=== PATIENT | female | born 1955 | race Caucasian/White ===

== ENCOUNTER → 2019-08-09 12:29 | Outpatient (CLI) | payer SELFPAY ==
--- NOTE | 2019-08-09 12:40 | DI.RAD.S_ITS ---
PROCEDURE: XR FOOT RT MIN 3V INDICATIONS: R Heel Pain TECHNIQUE: 3 views of the foot were acquired. COMPARISON: None. FINDINGS: Bones: No fractures or dislocations. No suspicious bony lesions. Diffuse interphalangeal joint degeneration. Mild first MTP degenerative joint disease.. Large plantar calcaneal spur. Incidental os peroneum Soft tissues: No tibiotalar joint effusion. Achilles tendon appears normal. IMPRESSION: Scattered degenerative changes as above. Large posterior calcaneal spur. Dictated by: Mathew Zapien M.D. on 08/09/2019 at 14:35 Approved by: Mathew Zapien M.D. on 08/09/2019 at 14:37
== END ==
PROVIDERS: Referring Provider Nurse Practitioner; Visit Provider Nurse Practitioner
DX: M79.671 Pain in right foot (principal); M77.31 Calcaneal spur, right foot; M19.071 Primary osteoarthritis, right ankle and foot
CPT/HCPCS: 73630

== ENCOUNTER → 2020-10-03 12:09 | Outpatient (CLI) | payer OTHER, SELFPAY ==
--- NOTE | 2020-10-03 | DI.US.S_ITS ---
PROCEDURE: US PELVIC COMPLETE INDICATIONS: PMB TECHNIQUE: Real-time scanning was performed of the pelvic organs, with image documentation. Additional endovaginal scanning was necessary due to incomplete visualization of the adnexal and endometrial structures by transabdominal scanning. COMPARISON: None. FINDINGS: Uterus: Uterus is normal in size at 6.4 x 2.7 x 4.7 cm. The endometrium measures 2.1 mm in combined thickness. Ovaries: Normal right ovary measuring 2.2 x 0.9 x 0.8 cm. Left ovary is not visualized. No adnexal masses or free fluid. Other: No pathologic free abdominal or pelvic fluid. IMPRESSION: Normal endometrial complex measurement of 2 mm. Dictated by: Harjeet Veras [facility] Interpreted: Mario Horowitz MD on 10/03/2020 at 12:52 Transcribed by: YAMILE on 10/03/2020 at 12:53 Approved by: Bari Valle M.D. on 10/04/2020 at 13:35
== END ==
PROVIDERS: PCP Internal Medicine; Referring Provider Internal Medicine; Visit Provider Internal Medicine
DX: N95.0 Postmenopausal bleeding (principal)
CPT/HCPCS: 76830; 76856

== ENCOUNTER → 2021-01-05 10:00 | Outpatient (CLI) | payer OTHER, SELFPAY | PROVIDERS: PCP Internal Medicine; Referring Provider Internal Medicine; Visit Provider Internal Medicine | DX: Z78.0 Asymptomatic menopausal state (principal) | CPT/HCPCS: 77080 ==

== ENCOUNTER → 2021-02-12 08:58 | Outpatient (CLI) | payer OTHER, SELFPAY ==
--- NOTE | 2021-02-12 09:00 | DI.MG.S_ITS ---
BILATERAL DIGITAL SCREENING MAMMOGRAM 3D/2D WITH CAD: 02/12/2021 CLINICAL: Routine screening. Family history of breast cancer. Comparison is made to exams dated: 03/13/2018 mammogram and 04/08/2011 mammogram - out side. The tissue of both breasts is heterogeneously dense. This may lower the sensitivity of mammography. Current study was also evaluated with a Computer Aided Detection (CAD) system. There is a new fine calcification in the right breast posterior depth superior region seen on the mediolateral oblique view only. No other significant masses, calcifications, or other findings are seen in either breast. Left breast scar marker. IMPRESSION: INCOMPLETE: NEEDS ADDITIONAL IMAGING EVALUATION The new fine calcification in the right breast is indeterminate. Additional views are recommended. This exam was interpreted at Station ID: [id number]. NOTE: For mammograms, a report in lay terms will be sent to the patient. Approximately 15% of breast malignancies will not be visualized mammographically. In the management of a palpable breast mass, a negative mammogram must not discourage biopsy of a clinically suspicious lesion. Electronically Signed By: Brian Silveira M.D. [facility]/:02/13/2021 09:23:13 letter sent: Additional Imaging Needed ACR BI-RADS Category 0: Incomplete 3340F
== END ==
PROVIDERS: PCP Internal Medicine; Referring Provider Internal Medicine; Visit Provider Internal Medicine
DX: Z12.31 Encounter for screening mammogram for malignant neoplasm of breast (principal); Z80.3 Family history of malignant neoplasm of breast
CPT/HCPCS: 77063; 77067

== ENCOUNTER → 2021-02-26 13:26 | Outpatient (CLI) | payer OTHER, SELFPAY ==
--- NOTE | 2021-02-26 14:04 | DI.MG.S_ITS ---
Date: 02/26/2021 13:53 At the request of: JANNIE ANGEL Procedure: MM special view RT UNILATERAL RIGHT DIGITAL DIAGNOSTIC MAMMOGRAM 3D/2D WITH ADDITIONAL VIEWS: 02/26/2021 CLINICAL: Additional evaluation requested from prior study. Comparison is made to exams dated: 02/12/2021 [facility], 03/13/2018 mammogram, and 04/08/2011 mammogram - out side. The tissue of right breast is heterogeneously dense. This may lower the sensitivity of mammography. There are new 1 cm grouped linear fine calcifications in the right breast posterior depth superior region seen on the mediolateral oblique view only. No other significant masses or calcifications are seen in the breast. IMPRESSION: SUSPICIOUS OF MALIGNANCY Fine calcifications in the right breast are at a moderate suspicion for malignancy. A stereotactic biopsy is recommended. Exam findings were conveyed to the patient. This exam was interpreted at Station ID: [id number]. NOTE: For mammograms, a report in lay terms will be sent to the patient. Approximately 15% of breast malignancies will not be visualized mammographically. In the management of a palpable breast mass, a negative mammogram must not discourage biopsy of a clinically suspicious lesion. Electronically Signed By: Brian Silveira M.D. slc/:02/26/2021 14:17:13
== END ==
PROVIDERS: PCP Internal Medicine; Referring Provider Internal Medicine; Visit Provider Internal Medicine
DX: R92.8 Other abnormal and inconclusive findings on diagnostic imaging of breast (principal)
CPT/HCPCS: 77065; G0279

== ENCOUNTER → 2021-04-24 12:30 | Outpatient (CLI) | payer OTHER, SELFPAY ==
--- NOTE | 2021-04-24 | DI.MRI.S_ITS ---
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 PROCEDURE: MR BREAST BI WO/W CON INDICATIONS: Intraductal carcinoma in situ of right breast TECHNIQUE: The patient was placed prone in a dedicated breast imaging coil. Precontrast axial STIR and 3D FLASH without fat saturation sequences were obtained. Both before and after bolus injection of contrast, sequential 1-minute axial 3D FLASH with fat saturation sequences for 3 time points, with subtraction images and maximum intensity projections (MIP's) generated. Delayed sagittal FLASH images with fat saturation were also obtained. Computer-aided detection, including computer algorithm analysis of MRI image data for lesion detection and characterization, pharmacokinetic analysis, with further physician review for interpretation, was performed. Contrast: 20 cc ProHance IV contrast. COMPARISON: [facility], MG, MG BREAST SPECIMEN RIGHT, 03/09/2021, 13:25. [facility], , MG DIGITAL BREAST TOMOSYNTHESIS BREAST BIOPSY RIGHT, 03/09/2021, 13:10. [facility], , MM SPECIAL VIEW RT, 02/26/2021, 14:04. [facility], , MM SCREENING MAMMO BI, 02/12/2021, 9:24. [facility], , MM SPECIAL VIEW RT, 02/12/2021, 9:24. FINDINGS: Image quality: Excellent. There is minimal background parenchymal enhancement. Right breast: Retroareolar posterior depth clumped non mass enhancement measuring 1.1 x 0.8 x 0.6 cm, (32/62 and /64). Biopsy clip within this area of enhancement. Kinetic analysis demonstrates slow initial phase and persistent delayed phase enhancement. This corresponds to the biopsy-proven DCIS. This corresponds to the region of fine calcifications on mammogram. 12:00 o'clock anterior depth enhancing focus measuring 0.5 cm, (26/86 and at 32/61). Retroareolar duct which is a dilated measuring 0.4 cm and contains intrinsic T1 hyperintense signal, (/64). No enhancement. This likely represents blood products or proteinaceous debris. Left breast: No mass or suspicious enhancement. Miscellaneous: No enlarged lymph nodes. IMPRESSION: KNOWN BIOPSY PROVEN MALIGNANCY 1. Right breast: Retroareolar posterior depth clumped non mass enhancement measuring 1.1 cm corresponding to the biopsy-proven DCIS. 2. Right breast: 12:00 o'clock anterior depth enhancing focus measuring 0.5 cm. No suspicious calcifications in this region on mammogram. 3. Right breast: Retroareolar prominent duct with hemorrhagic or proteinaceous debris. This could be related to recent biopsy. -Recommend clinical correlation. If further imaging is desired, recommend targeted ultrasound. 4. Left breast: No mass or suspicious enhancement. 5. No enlarged lymph nodes. BIRADS 6. COMMENT: The imaging literature indicates that a negative contrast breast MRI examination has a high sensitivity and a moderate specificity for detecting and excluding invasive carcinomas to a detection threshold of 3-5 mm; nonetheless, appropriate clinical and mammographic follow-up are recommended. MRI is not sensitive for detecting DCIS (ductal carcinoma in situ) and may not detect large invasive neoplasms that show only minimal enhancement such as mucinous carcinoma. If there are suspicious calcifications or clinically worrisome palpable masses, then biopsy should still be considered. Invasive neoplasms can be hidden by co-existent and benign enhancement caused by mastitis, hormone therapy effects, radiation therapy, , and recent biopsy or surgery. False positive examinations can occur in a number of circumstances, including breasts that have recently been subject to invasive procedures and those that contain atypical ductal hyperplasia, hormonally stimulated glandular tissue, fat necrosis, or radial scars. Dictated by: Brian Silveira M.D. on 04/24/2021 at 14:41 This exam was interpreted at Station ID: [id number]. Electronically Signed By: Brian Silveira M.D. slc/:04/24/2021 15:17:11 ACR BI-RADS Category 6: Known biopsy proven malignancy [id number]
== END ==
PROVIDERS: PCP Internal Medicine; Referring Provider Surgery; Visit Provider Surgery
DX: D05.11 Intraductal carcinoma in situ of right breast (principal)
CPT/HCPCS: 77049

== ENCOUNTER → 2022-02-12 12:46 | Outpatient (CLI) | payer OTHER, SELFPAY ==
--- NOTE | 2022-02-12 12:48 | DI.US.S_ITS ---
PROCEDURE: US PELVIC COMPLETE INDICATIONS: Pelvic and perineal pain TECHNIQUE: Real-time scanning was performed of the pelvic organs, with image documentation. Additional endovaginal scanning was necessary due to incomplete visualization of the adnexal and endometrial structures by transabdominal scanning. COMPARISON: [facility], US, US PELVIC COMPLETE, 10/03/2020, 12:30. FINDINGS: Uterus: Uterus is anteverted and normal in size at 6.8 x 3.2 x 4.3 cm. The myometrium is homogeneous. The endometrium measures 2 mm combined thickness. Ovaries: The ovaries are not visualized. Other: No pathologic free abdominal or pelvic fluid. IMPRESSION: Unremarkable uterine ultrasound. The ovaries were not visualized. We strive to produce accurate, complete, and clear reports of imaging services. To assist us in improving patient care, this report was composed using standard report templates and voice recognition software. Therefore, it may contain abnormal punctuation, insertions and/or omissions. Occasional wrong-word or sound-alike substitutions may occur. Though we review the report and make efforts to correct it, we do recommend that the report be read carefully in proper context to recognize any text inaccuracies. Dictated by: Noa Kendrick M.D. on 02/12/2022 at 14:11 Approved by: Noa Kendrick M.D. on 02/12/2022 at 14:12
== END ==
PROVIDERS: PCP Internal Medicine; Referring Provider Internal Medicine; Visit Provider Internal Medicine
DX: R10.2 Pelvic and perineal pain (principal)
CPT/HCPCS: 76856

== ENCOUNTER → 2022-03-21 13:28 | Outpatient (CLI) | payer MEDICARE, SELFPAY ==
--- NOTE | 2022-03-21 | DI.MG.S_ITS ---
BILATERAL DIGITAL DIAGNOSTIC MAMMOGRAM 3D/2D POST LUMPECTOMY POST-RADIATION THERAPY: 03/21/2022 CLINICAL: Post right lumpectomy and radiation therapy. Comparison is made to exams dated: 06/06/2021 localization - [facility], 04/24/2021 breast MRI, 02/26/2021 mammogram, and 02/12/2021 mammogram - [facility]. Both breasts are heterogeneously dense, which may obscure small masses (category c / 51-75% glandular tissue). There are new surgical clips in the right breast in the posterior depth central to the nipple that correlate with surgical site. No significant masses, calcifications, or other findings are seen in either breast. IMPRESSION: NEGATIVE Expected right breast post operative changes. There is no mammographic evidence of malignancy. A 1 year screening mammogram is recommended. Findings and recommendations were conveyed to the patient at time of exam. This exam was interpreted at Station ID: [id number]. NOTE: For mammograms, a report in lay terms will be sent to the patient. Approximately 15% of breast malignancies will not be visualized mammographically. In the management of a palpable breast mass, a negative mammogram must not discourage biopsy of a clinically suspicious lesion. Electronically Signed By: Rose Mary scott/:03/21/2022 14:14:10 copy to: SHAR FARRIS letter sent: Normal Exam ACR BI-RADS Category 1: Negative [id number]
== END ==
PROVIDERS: PCP Internal Medicine
DX: D05.11 Intraductal carcinoma in situ of right breast (principal)
CPT/HCPCS: 77066; G0279

== ENCOUNTER → 2023-03-24 14:21 | Outpatient (CLI) | payer OTHER, SELFPAY ==
--- NOTE | 2023-03-24 14:23 | DI.MG.S_ITS ---
BILATERAL DIGITAL SCREENING MAMMOGRAM 3D/2D WITH CAD POST LUMPECTOMY: 03/24/2023 CLINICAL: Routine screening. Personal history of right breast cancer. Family history of Breast cancer. Comparison is made to exams dated: 03/21/2022 mammogram - [facility], 03/13/2018 mammogram, and 04/08/2011 mammogram - out side. Both breasts are heterogeneously dense, which may obscure small masses (category c / 51-75% glandular tissue). Current study was also evaluated with a Computer Aided Detection (CAD) system. There are surgical clips in the right breast. There is an asymmetry in the right breast posterior depth central to the nipple seen on the mediolateral oblique view only. No other significant masses, calcifications, or other findings are seen in either breast. IMPRESSION: INCOMPLETE: NEEDS ADDITIONAL IMAGING EVALUATION The asymmetry in the right breast is indeterminate. Additional views with possible ultrasound are recommended. This exam was interpreted at Station ID: [id number]. NOTE: For mammograms, a report in lay terms will be sent to the patient. Approximately 15% of breast malignancies will not be visualized mammographically. In the management of a palpable breast mass, a negative mammogram must not discourage biopsy of a clinically suspicious lesion. Electronically Signed By: Noa Kendrick M.D. lk/:03/24/2023 15:40:37 copy to: SHAR FARRIS letter sent: Additional Imaging Needed ACR BI-RADS Category 0: Incomplete 3340F
== END ==
LOC: MAMMO 14:22
PROVIDERS: PCP Internal Medicine; Referring Provider Internal Medicine; Visit Provider Internal Medicine
DX: Z12.31 Encounter for screening mammogram for malignant neoplasm of breast (principal); Z85.3 Personal history of malignant neoplasm of breast; Z80.3 Family history of malignant neoplasm of breast; R92.333 Mammographic heterogeneous density, bilateral breasts
CPT/HCPCS: 77063; 77067

== ENCOUNTER → 2023-04-16 13:16 | Outpatient (CLI) | payer OTHER, SELFPAY ==
--- NOTE | 2023-04-16 13:17 | DI.MG.S_ITS ---
UNILATERAL RIGHT DIGITAL DIAGNOSTIC MAMMOGRAM 3D/2D WITH ADDITIONAL VIEWS POST LUMPECTOMY: 04/16/2023 CLINICAL: Additional evaluation requested from prior study. Comparison is made to exams dated: 03/24/2023 mammogram, 03/21/2022 mammogram, 04/24/2021 breast MRI, and 02/26/2021 mammogram - [facility]. The right breast is heterogeneously dense, which may obscure small masses (category c / 51-75% glandular tissue). There are surgical clips in the right breast. The asymmetry in the right breast posterior depth central to the nipple seen on the mediolateral oblique view only is not seen in additional views. No other significant masses or calcifications are seen in the breast. IMPRESSION: NEGATIVE The asymmetry in the right breast seen on the screening mammogram likely respresents superimposed fibroglandular tissue and is benign. Return to annual mammogram screening schedule is recommended. This exam was interpreted at Station ID: [id number]. NOTE: For mammograms, a report in lay terms will be sent to the patient. Approximately 15% of breast malignancies will not be visualized mammographically. In the management of a palpable breast mass, a negative mammogram must not discourage biopsy of a clinically suspicious lesion. Electronically Signed By: Noa Kendrick M.D. lk/:04/18/2023 10:55:43 copy to: SHAR FARRIS letter sent: Normal Exam ACR BI-RADS Category 1: Negative [id number]
== END ==
PROVIDERS: PCP Internal Medicine; Referring Provider Registered Nurse; Visit Provider Registered Nurse
DX: R92.8 Other abnormal and inconclusive findings on diagnostic imaging of breast (principal); R92.331 Mammographic heterogeneous density, right breast
CPT/HCPCS: 77065; G0279

== ENCOUNTER → 2023-06-25 15:56 | Outpatient (CLI) | payer OTHER, SELFPAY ==
[2023-06-25 16:31] LABS: Add Manual Diff / Slide Review NO; Basophils Absolute Auto 100 /uL (0-100); Basophils Percent Auto 0.9 % (0-2); Eosinophils Absolute Auto 0 /uL (0-450); Eosinophils Percent Auto 0.8 % (2-4); Hematocrit 42.3 % (36-46); Hemoglobin 14.1 g/dL (12.0-16.0); Lymphocytes Absolute Auto 1300 /uL (1100-4500); Mean Corpuscular HGB Conc 33.3 % (30-36); Mean Corpuscular Hemoglobin 29.7 PG (26-34); Mean Corpuscular Volume 89.1 fL (80-100); Monocytes Absolute Auto 300 /uL (0-900); Monocytes Percent Auto 5.3 % (3-14); Neutrophils Absolute Auto 4400 /uL (1500-7000); Platelet Count 252 X10^3/uL (150-400); Red Blood Cell Count 4.75 X10^6/uL (4.0-5.2); Red Cell Distribution Width 13.7 % (11.6-14.8); White Blood Cell Count 6.2 X10^3/uL (4.5-11.0)
[2023-06-25 17:00] LABS: Alanine Aminotransferase 21 IU/L (<35); Albumin 4.6 g/dL (3.5-5.0); Albumin Globulin Ratio 1.5 (1.0-2.8); Alkaline Phosphatase 33 U/L (38-126); Aspartate Aminotransferase 24 IU/L (14-36); BUN Creatinine Ratio 18.9 (6-22); Bilirubin Total 0.4 mg/dL (0.2-1.3); Blood Urea Nitrogen 17 mg/dL (7-17); C-Reactive Protein Quant < 0.5 mg/dL (<1.0); Calcium 9.9 mg/dL (8.4-10.2); Carbon Dioxide 30 mmol/L (22-32); Chloride 106 mmol/L (98-107); Estimated Glomerular Filt Rate > 60 mL/min (>60); Globulin 3.1 g/dL (1.7-4.1); Glucose 106 mg/dL (80-110); HEMOLYSIS < 15 (0-50); Potassium 4.4 mmol/L (3.4-5.1); Sodium 141 mmol/L (137-145); Total Protein 7.7 g/dL (6.3-8.2)
[2023-06-25 17:01] LABS: Erythrocyte Sedimentation Rate 6 MM/HR (0-20)
== END ==
LOC: LAB 15:59
PROVIDERS: PCP Internal Medicine; Referring Provider Internal Medicine; Visit Provider Internal Medicine
DX: J32.9 Chronic sinusitis, unspecified (principal); R51.9 Headache, unspecified; G89.29 Other chronic pain
CPT/HCPCS: 36415; 80053; 85025; 85651; 86140

== ENCOUNTER → 2023-07-01 14:05 | Outpatient (CLI) | payer OTHER, SELFPAY ==
--- NOTE | 2023-07-01 | DI.CT.S_ITS ---
PROCEDURE: CT SINUS SCREEN WO CON INDICATIONS: CHRONIC SINUSITIS TECHNIQUE: Noncontrast 3.0 mm axial images acquired from the frontal sinuses to the mid-sella, with coronal and sagittal reformats. For radiation dose reduction, the following was used: automated exposure control, adjustment of mA and/or kV according to patient size. COMPARISON: [facility], CT, CT HEAD/BRAIN WO CON, 07/01/2023, 14:29. FINDINGS: Image quality: Excellent. Maxillary Sinuses: No bony remodeling or destruction. There is mild mucosal thickening within the inferior maxillary sinuses. Ethmoid Air Cells: No bony remodeling or destruction. Sinuses are clear. Sphenoid Sinuses: No bony remodeling or destruction. Sinuses are clear. Frontal Sinuses: No bony remodeling or destruction. Sinuses are clear. Ostiomeatal Complexes: The ostiomeatal complexes are patent, yet they are constitutionally narrowed, with bilateral Phani cells. Miscellaneous: Visualized intra-orbital contents are normal. No sherman bullosa or paradoxical turbinate curvature. There is mild S shaped nasal septal deviation. IMPRESSION: Mild mucosal thickening can be seen within the inferior maxillary sinuses. The ostiomeatal complexes are patent, yet they are constitutionally narrowed, with bilateral Phani cells. Dictated by: Alfredo Grace M.D. on 07/01/2023 at 16:35 Approved by: Alfredo Grace M.D. on 07/01/2023 at 16:37
--- NOTE | 2023-07-01 14:06 | DI.CT.S_ITS ---
PROCEDURE: CT HEAD/BRAIN WO CON INDICATIONS: HEADACHES / CHRONIC SINUSITIS TECHNIQUE: Noncontrast 4.5 mm thick angled axial sections acquired from the foramen magnum to the vertex, with coronal and sagittal reformats. For radiation dose reduction, the following was used: automated exposure control, adjustment of mA and/or kV according to patient size. COMPARISON: [facility], CT, CT SINUS SCREEN WO CON, 07/01/2023, 14:29. FINDINGS: Image quality: Diagnostic. CSF spaces: Basal cisterns are patent. No extra-axial fluid collections. The ventricles are symmetric in size and shape. Brain: No intracranial bleeds or masses. There is cerebral volume loss for age, with resultant ventricular and sulcal prominence. There are periventricular and deep white matter chronic small vessel ischemic changes. There is intracranial internal carotid artery atherosclerosis. Skull and face: Calvarium and visualized facial bones appear intact, without suspicious lesions. Sinuses: Visualized sinuses and mastoids are clear. IMPRESSION: No imaging explanation is found for this patient's presenting symptoms. To the limits of this noncontrast study, no findings masses or mass effect can be seen. Dictated by: Alfredo Grace M.D. on 07/01/2023 at 13:37 Approved by: Alfredo Grace M.D. on 07/01/2023 at 13:38
== END ==
LOC: CT 14:06
PROVIDERS: PCP Internal Medicine; Referring Provider Internal Medicine; Visit Provider Internal Medicine
DX: R51.9 Headache, unspecified (principal); J32.8 Other chronic sinusitis; G89.29 Other chronic pain
CPT/HCPCS: 70450; 70486

== ENCOUNTER → 2023-08-18 07:15 | Outpatient (CLI) | payer OTHER, SELFPAY ==
--- NOTE | 2023-08-18 08:15 | DI.MRI.S_ITS ---
PROCEDURE: MR HEAD/BRAIN WO/W CON INDICATIONS: Headache, unspecified TECHNIQUE: Noncontrast axial T1 spin echo, axial T2 fast spin echo, sagittal and axial FLAIR, coronal T2 fast spin echo, axial gradient echo, axial diffusion and ADC through the brain. After the administration of contrast, axial and coronal and sagittal 3D VIBE or T1 spin echo with fat saturation through the brain. COMPARISON: [facility], CT, CT HEAD/BRAIN WO CON, 07/01/2023, 14:29.Intracranial FINDINGS: Image quality: Excellent. CSF Spaces: Basal cisterns are patent. No extra-axial fluid collections. Ventricles are normal in size and shape. Brain: No midline shift. No intracranial bleeds or masses. No abnormal intracranial enhancement. The brainstem appears normal. Diffusion-weighted images demonstrate no acute infarct. No chronic ischemic insults. Normal intravascular flow voids are present. Skull and face: Calvarial marrow is normal in signal. Orbits appear normal. Sinuses: Mild diffuse paranasal sinus mucosal thickening. The mastoids appear clear. IMPRESSION: No cause for patient's symptoms is identified. No acute intracranial abnormalities. Normal appearance of the brain. Dictated by: Michael Hernandez M.D. on 08/18/2023 at 13:30 Approved by: Michael Hernandez M.D. on 08/18/2023 at 13:36
== END ==
PROVIDERS: PCP Internal Medicine; Referring Provider Internal Medicine; Visit Provider Internal Medicine
DX: R51.9 Headache, unspecified (principal); G89.29 Other chronic pain; Z85.3 Personal history of malignant neoplasm of breast
CPT/HCPCS: 70553; A9579

== ENCOUNTER → 2024-06-02 | Outpatient (CLI) | payer OTHER, SELFPAY ==
--- NOTE | 2024-06-02 15:14 | DI.MG.S_ITS ---
MM screening mammo BI: 06/02/2024. BI-RADS: 2 CLINICAL: 69-year old female for bilateral screening mammogram. No Tyrer-Cuzick risk score calculation due to the patient's personal history of breast cancer. Patient reports a history of right breast carcinoma diagnosed at age 67. Status-post left lumpectomy with radiation therapy. PRIOR EXAMS 04/16/2023, 03/24/2023, 03/21/2022, 06/07/2021, 06/06/2021, 06/04/2021, 05/25/2021, 04/24/2021, 03/09/2021, 02/26/2021, 02/12/2021. MAMMOGRAPHY TECHNIQUE: 2D and 3D (tomosynthesis) digital mammographic views obtained, with additional images as needed for full coverage. Current study was also evaluated with a Computer Aided Detection (CAD) system. DENSITY C. The breasts are heterogeneously dense, which may obscure small masses. MAMMOGRAPHY FINDINGS Right: Benign-appearing post-surgical changes noted on the right. There are no suspicious masses, calcifications, or other findings in the breast. No significant change from comparison. Left: No suspicious mass, asymmetry, microcalcification, or other abnormality seen. No significant change from comparison. IMPRESSION: Right * No evidence of malignancy with benign findings. Left * No evidence of malignancy. RECOMMENDATIONS Bilateral * Annual screening mammography. OVERALL ASSESSMENT CATEGORY BI-RADS-2: Benign. [employer] recommends annual screening mammography beginning at age 40 for women with average risk of breast cancer. ELECTRONICALLY SIGNED: Sabiha Manriquez M.D. on 06/03/2024 at 08:28:07 AM PT Interpreting Station ID: [id number]
== END ==
LOC: MAMMO 15:13
PROVIDERS: PCP Family Medicine; Referring Provider Family Medicine; Visit Provider Family Medicine
DX: Z12.31 Encounter for screening mammogram for malignant neoplasm of breast (principal); Z85.3 Personal history of malignant neoplasm of breast; R92.333 Mammographic heterogeneous density, bilateral breasts
CPT/HCPCS: 77063; 77067

== ENCOUNTER 2024-08-11 01:18 | Emergency (ER) | payer OTHER, SELFPAY ==
[2024-08-11] VITALS (10 sets, daily range): BP systolic 132–170; BP diastolic 70–90; PULSE 76–98; RESP 16; TEMP 37.2; O2SAT 87–98; BMI 29.9
[2024-08-11] MEDS: ONDANSETRON 4 MG ODT PO (01:35)
--- NOTE | 2024-08-11 06:31 | ED_ITS ---
HPI - General Adult General Chief complaint: Upper Respiratory Symptoms Stated complaint: cough, sore throat, dizzy, sinus congestion Time Seen by Provider: 08/11/24 06:31 Source: patient Mode of arrival: Ambulatory History of Present Illness HPI narrative: (patient was seen during downtime, 1st encounter 0510) 69-year-old female has had sinus pressure since April 2023, usually behind left eye, previous courses of antibiotics Augmentin and doxycycline recalled for sinus infection problems February in March 2024. She has seen Otolaryngology Dr. Cervantes in clinic, no sinus endoscopy nasopharyngoscopy performed. She does recall having sinus imaging. No sinus surgical procedures. She has had new cough for the last 4 5 days, with increasing congestion and more severe sinus pain. She is taking Mucinex DM without relief. He feels like she has developed another sinus infection. Related Data Allergies Allergy/AdvReac Type Severity Reaction Status Date / Time No Known Drug Allergies Allergy Verified 08/11/24 01:26 Patient History Social History Smoking Status: Never smoker Smoking Status: Never smoker Exam Narrative Exam Narrative: GENERAL: Well-developed patient, in mild distress. HEAD: Atraumatic. Normocephalic. EYES: Pupils equal round and reactive. Extraocular motions intact. No scleral icterus. No injection or drainage. ENT: Nose without bleeding, purulent drainage. Throat without erythema, tonsillar hypertrophy or exudate. Airway patent. NECK: Trachea midline. Non tender CARDIOVASCULAR: Regular rate and rhythm without murmurs, gallops, or rubs. RESPIRATORY: Clear to auscultation. Breath sounds equal bilaterally. No wheezes, rales, or rhonchi. GASTROINTESTINAL: Abdomen soft, non-tender, nondistended. EXTREMITIES: No edema or joint tenderness. BACK: Nontender without deformity or crepitance. No flank tenderness. NEURO: AOx3. Motor functions grossly nonfocal SKIN: No rash or erythema of visible areas Initial Vital Signs Initial Vital Signs: Vital Signs Temperature 98.9 F 08/11/24 01:26 Pulse Rate 98 H 08/11/24 01:26 Respiratory Rate 16 08/11/24 01:26 Blood Pressure 167/84 H 08/11/24 01:26 Pulse Oximetry 98 08/11/24 01:26 Oxygen Delivery Method Room Air 08/11/24 01:26 Course Orders Ordered: Discontinued Medications Ondansetron HCl (Ondansetron 4 Mg Odt) 4 mg PO NOW PRN PRN Reason: Nausea And Vomiting Last Admin: 08/11/24 01:35 Dose: 4 mg Documented By: HNG Vital Signs Vital signs: Vital Signs - 8 hr 08/11/24 01:26 08/11/24 03:30 08/11/24 03:33 Temperature 98.9 F Pulse Rate 98 H 89 Respiratory Rate 16 Blood Pressure 167/84 H 170/90 H Pulse Oximetry 98 87 L Oxygen Delivery Method Room Air 08/11/24 03:35 08/11/24 03:35 08/11/24 04:00 Temperature Pulse Rate 92 H 85 Respiratory Rate Blood Pressure 170/90 H 143/71 H Pulse Oximetry 98 94 Oxygen Delivery Method Room Air 08/11/24 04:00 08/11/24 04:00 08/11/24 04:30 Temperature Pulse Rate 85 82 Respiratory Rate Blood Pressure 143/71 H 152/80 H Pulse Oximetry 94 95 Oxygen Delivery Method Room Air 08/11/24 04:30 08/11/24 04:30 08/11/24 05:00 Temperature Pulse Rate 82 76 Respiratory Rate Blood Pressure 152/80 H 132/70 Pulse Oximetry 95 92 Oxygen Delivery Method Room Air 08/11/24 05:00 08/11/24 05:00 08/11/24 05:29 Temperature Pulse Rate 76 85 Respiratory Rate Blood Pressure 132/70 Pulse Oximetry 92 95 Oxygen Delivery Method 08/11/24 05:30 08/11/24 05:30 08/11/24 05:43 Temperature Pulse Rate Respiratory Rate Blood Pressure 136/80 136/80 139/82 Pulse Oximetry Oxygen Delivery Method 08/11/24 05:43 Temperature Pulse Rate 80 Respiratory Rate Blood Pressure Pulse Oximetry 94 Oxygen Delivery Method Medical Decision Making [facility] Narrative Medical decision making narrative: 69-year-old female with chronic sinus pain recently increased with URI symptoms, requesting otolaryngology referral in follow up. Consider antibacterial course of antibiotics given her long history. Prescription during downtime handwritten, provided to patient for discharge. Augmentin b.i.d. for 10 day course. Discharge instructions mentioned follow up with Otolaryngology Dr. Sheldon, though patient instructed she might need referral from primary care provider. Follow up with PCP and or otolaryngology, take antibiotics as directed. Discharge with family. (see discharge instruction form generated by word document during downtime, handwritten prescription for Augmentin provided to patient for discharge to fill it pharmacy) Discharge Plan Departure Patient Disposition: Home Clinical Impression: Sinusitis Referrals: Nick Sheldon MD [Physician, Otolaryngology (ENT)] Stand Alone Forms: Patient Portal/API
== END 2024-08-11 06:32 | disposition home or self-care (01) ==
PROVIDERS: Emergency Provider Emergency Medicine; PCP Family Medicine
DX: J32.9 Chronic sinusitis, unspecified (principal); R05.9 Cough, unspecified
CPT/HCPCS: 99283

== ENCOUNTER 2024-08-14 07:52 | Emergency (ER) | payer OTHER, SELFPAY ==
[2024-08-14] VITALS (7 sets, daily range): BP systolic 134–158; BP diastolic 73–84; PULSE 71–100; RESP 16–19; TEMP 36.5–37; O2SAT 93–98; BMI 30.8
--- NOTE | 2024-08-14 08:08 | ED_ITS ---
HPI - General Adult General Chief complaint: Upper Respiratory Symptoms Stated complaint: WEAK,COUGH Time Seen by Provider: 08/14/24 08:00 History of Present Illness HPI narrative: 69-year-old woman presents with severe sinus/facial/frontal headache that has been ongoing for months. Workup today has included an ENT visit who felt that she had migraines (69-year-old woman with no prior history of migraine), seen in the emergency department prescribed Augmentin which she has been taking for almost a week with no relieved his symptoms. To date she has been aggressive with nasal saline washes, she has tried nasal steroids, Sudafed and has had no relief whatsoever. She has now got cough productive of yellow sputum, each time she coughs it causes severe pain in the face and sinus area. Does describe minimal postnasal drip, no fevers no chest pain aside from pain associated with coughing. Related Data Previous Rx's ?Medication ?Instructions ?Recorded methylprednisolone 4 mg tablets in See Rx Instructions PO .COMPLEX 08/14/24 a dose pack #21 ea Allergies Allergy/AdvReac Type Severity Reaction Status Date / Time adhesive tape Allergy Blister Verified 08/14/24 08:08 Review of Systems Review of Systems Narrative: Pertinent positive and negative findings as per HPI Patient History Social History Smoking Status: Never smoker Exam Initial Vital Signs Initial Vital Signs: Vital Signs Temperature 97.7 F 08/14/24 08:07 Pulse Rate 100 H 08/14/24 08:07 Respiratory Rate 19 08/14/24 08:07 Blood Pressure 158/84 H 08/14/24 08:07 Pulse Oximetry 98 08/14/24 08:07 Oxygen Delivery Method Room Air 08/14/24 08:07 General: Alert appropriate, appears uncomfortable HEENT: Tenderness to percussion of frontal and maxillary sinuses bilaterally. Increased pain when leaning forward, posterior pharynx is unremarkable, no cervical adenopathy Respiratory: Able to speak in full sentences, no obvious respiratory distress, no wheezing or rhonchi appreciated Skin: No obvious rashes, warm and dry Neurologic: Grossly intact no obvious asymmetries or abnormalities Psych: appropriate insight and affect, cooperative Course Orders Ordered: ED Orders 08/14/24 08:17 CT sinus screen wo con Stat 08/14/24 08:33 CRP [C-Reactive Protein Quant] Stat Complete Blood Count AUTO DIFF Stat Comprehensive Metabolic Panel Stat Erythrocyte Sedimentation Rate Stat Procalcitonin Stat Hydromorphone HCl (Hydromorphone 0.5 Mg Inj) 0.5 mg IV Q15MIN PRN PRN Reason: Pain, Discontinued Medications Dexamethasone (Dexamethasone 10 Mg/Ml Vial) 10 mg IV NOW ONE Stop: 08/14/24 08:18 Last Admin: 08/14/24 08:40 Dose: 10 mg Documented By: LADI Sodium Chloride (Normal Saline 0.9%) 1,000 mls @ 1,000 mls/hr IV BOLUS ONE Stop: 08/14/24 09:16 Last Infusion: 08/14/24 09:48 Dose: Infused Documented By: Admin: 08/14/24 08:39 Dose: 1,000 mls/hr Documented By: LADI Ketorolac Tromethamine (Ketorolac 30 Mg/Ml Vial) 15 mg IV NOW ONE Stop: 08/14/24 08:18 Last Admin: 08/14/24 08:39 Dose: 15 mg Documented By: LADI Ondansetron HCl (Ondansetron 4 Mg/2 Ml Inj) 4 mg IV NOW ONE Stop: 08/14/24 08:18 Last Admin: 08/14/24 08:39 Dose: 4 mg Documented By: LADI Vital Signs Vital signs: Vital Signs - 8 hr 08/14/24 08:07 Temperature 97.7 F Pulse Rate 100 H Respiratory Rate 19 Blood Pressure 158/84 H Pulse Oximetry 98 Oxygen Delivery Method Room Air Medical Decision Making Lab Data 08/14/24 08:33 08/14/24 08:33 Labs: Lab Results 08/14/24 Range/Units 08:33 WBC 4.5 (4.5-11.0) X10^3/uL RBC 4.88 (4.0-5.2) X10^6/uL Hgb 14.6 (12.0-16.0) g/dL Hct 42.8 (36-46) % MCV 87.7 (80-100) fL MCH 30.0 (26-34) PG MCHC 34.2 (30-36) % RDW 13.4 (11.6-14.8) % Plt Count 202 (150-400) X10^3/uL Neut % (Auto) 73.0 (50-75) % Lymph % (Auto) 18.5 L (25-40) % Luna % (Auto) 6.4 (3-14) % Eos % (Auto) 1.5 L (2-4) % Baso % (Auto) 0.6 (0-2) % Neut # (Auto) 3300 (7135-4929) /uL Lymph # (Auto) 800 L (0173-3376) /uL Luna # (Auto) 300 (0-900) /uL Eos # (Auto) 100 (0-450) /uL Baso # (Auto) 0 (0-100) /uL ESR 11 (0-20) MM/HR Sodium 138 (137-145) mmol/L Potassium 3.9 (3.4-5.1) mmol/L Chloride 105 (98-107) mmol/L Carbon Dioxide 25 (22-32) mmol/L BUN 12 (7-17) mg/dL Creatinine 0.80 (0.52-1.04) mg/dL Estimated GFR > 60 (>60) mL/min BUN/Creatinine Ratio 15.0 (6-22) Glucose 112 H (70-99) mg/dL Calcium 9.2 (8.4-10.2) mg/dL Total Bilirubin 0.6 (0.2-1.3) mg/dL AST 27 (14-36) IU/L ALT 21 (<35) IU/L Alkaline Phosphatase 33 L (38-126) U/L C-Reactive Protein 2.0 H (<1.0) mg/dL Total Protein 7.9 (6.3-8.2) g/dL Albumin 4.4 (3.5-5.0) g/dL Globulin 3.5 (1.7-4.1) g/dL Albumin/Globulin Ratio 1.3 (1.0-2.8) Procalcitonin 0.056 (<0.5) ng/mL Imaging Data Sinus CT: Radiologist's Impression: PROCEDURE: CT SINUS SCREEN WO CON INDICATIONS: persistent frontal and sinus headache TECHNIQUE: Noncontrast 3.0 mm axial images acquired from the frontal sinuses to the mid- sella, with coronal and sagittal reformats. For radiation dose reduction, the following was used: automated exposure control, adjustment of mA and/or kV according to patient size. COMPARISON: [facility], CT, CT SINUS SCREEN WO CON, 07/01/2023, 14:29. FINDINGS: Image quality: Diagnostic Maxillary Sinuses: Moderate mucosal thickening bilaterally. Ethmoid Air Cells: Moderate diffuse mucosal thickening Sphenoid Sinuses: Mild mucosal thickening. There is narrowing of the sphenoid outlets. Frontal Sinuses: No significant opacification Ostiomeatal Complexes: Significantly narrowed by mucosal thickening. There are bilateral Phani cells. Miscellaneous: No sherman bullosa. Mild rightward nasal septum deviation. Orbits appear unremarkable. IMPRESSION: Moderate paranasal sinus disease most significant in the maxillary sinuses and ethmoid air cells. There is significant narrowing of the ostiomeatal complexes with bilateral Phani cells. No significant opacification of the frontal sinuses. Dictated by: Anton Zepeda M.D. on 08/14/2024 at 8:45 MDM Narrative Medical decision making narrative: CC: Persistent facial pain and headache Complicating co-morbidities: No significant medical history is beyond the chronic sinus pain Data collected from: patient Medical records reviewed: ER note from August 11 with similar findings reviewed Patient stated her recent ENT appointment involved a brief look up the left nostril and diagnosis of migraine Differential considered: Chronic sinusitis, chronic inflammation, fungal sinusitis Exam documented above, pertinent findings include: Patient appears quite uncomfortable, tenderness to percussion all facial forehead sinuses, lungs are clear remainder of exam is benign Lab Test results independently reviewed as above. Pertinent findings: CBC is unremarkable Chemistries are reassuring C-reactive protein is elevated at 2 Procalcitonin is not elevated Sed rate is not elevated Imaging studies independently reviewed: CT scan of the sinuses shows moderate paranasal sinus disease with significant mucosal thickening irritation without opacification. Treatments: IV fluid, Toradol, Zofran, 10 mg of dexamethasone Discussion: 69-year-old woman with chronic sinus issues and significant headache presents for worsening headache over the last couple of days. She has had issues since at least February, in February she had 3 courses of antibiotics 20 days of Augmentin, 10 days of doxycycline. She is using a Neti pot, nasal steroids and Sudafed to help with congestion. She has had an ear nose and throat consultation who felt that her symptoms were related to migraine. Workup today does not show acute infection she has significant sinus mucosal inflammation throughout all of her sinuses. Possibility of fungal sinusitis is at least entertained. No sign of invasive disease on CT scanning. She is currently on Augmentin for 10 days has 7 more days of medication. She was given steroids today to help with the inflammation, we will give her a Medrol Dosepak to see if this helps. We discussed ibuprofen help with the pressure. She does have an appointment in late September with another ear nose and throat physician and will try both [facility] if there might be an ear nose and throat physician with sooner availability. She is given a copy of her CT scan results. No indication for further treatment or hospitalization and she is safe for discharge Discharge Plan Departure Patient Disposition: Home Clinical Impression: Sinusitis Qualifiers: Sinusitis location: pansinusitis Chronicity: chronic Qualified Code(s): J32.4 - Chronic pansinusitis Instructions: DI for Sinusitis Activity Restrictions/Additional Instructions: Thank you for coming in today Since symptoms have been ongoing, you have done everything right, you have had all appropriate treatment we did the next step in the workup today which included sinus CT scan and blood work. Blood work was reassuring. CT scan shows pansinusitis in the form of significant mucosal thickening without obvious abscess. I am going to suggest that you continue the Augmentin that you are currently prescribed. I gave you a dose of steroid in the emergency department and I am going to suggest you complete a Medrol Dosepak. This prescription was electronically transmitted to [facility] in [place] Please do continue with your saline nose washes and intranasal steroids You need to see ear nose and throat physicians again to work toward definitive diagnosis. It may be helpful to call physicians located and some of the larger cities beyond [facility] to see if they have sooner availability than the end of September Using 400 mg of ibuprofen (2 [id number] pills) and 1 Tylenol every 6 hours can be very helpful in controlling pain. If you find that you are getting worse or develop any new symptoms, please feel free to return to the emergency department for further evaluation. Prescriptions: New methylprednisolone 4 mg tablets,dose pack See Rx Instructions .ROUTE .COMPLEX Qty: 21 0RF Rx Instructions: for 6 days Referrals: Mercedes Lanier MD [Primary Care Provider, Family Practice] Stand Alone Forms: Patient Portal/API
--- NOTE | 2024-08-14 08:17 | DI.CT.S_ITS ---
PROCEDURE: CT SINUS SCREEN WO CON INDICATIONS: persistent frontal and sinus headache TECHNIQUE: Noncontrast 3.0 mm axial images acquired from the frontal sinuses to the mid- sella, with coronal and sagittal reformats. For radiation dose reduction, the following was used: automated exposure control, adjustment of mA and/or kV according to patient size. COMPARISON: [facility], CT, CT SINUS SCREEN WO CON, 07/01/2023, 14:29. FINDINGS: Image quality: Diagnostic Maxillary Sinuses: Moderate mucosal thickening bilaterally. Ethmoid Air Cells: Moderate diffuse mucosal thickening Sphenoid Sinuses: Mild mucosal thickening. There is narrowing of the sphenoid outlets. Frontal Sinuses: No significant opacification Ostiomeatal Complexes: Significantly narrowed by mucosal thickening. There are bilateral Phani cells. Miscellaneous: No sherman bullosa. Mild rightward nasal septum deviation. Orbits appear unremarkable. IMPRESSION: Moderate paranasal sinus disease most significant in the maxillary sinuses and ethmoid air cells. There is significant narrowing of the ostiomeatal complexes with bilateral Phani cells. No significant opacification of the frontal sinuses. Dictated by: Anton Zepeda M.D. on 08/14/2024 at 8:45 Approved by: Anton Zepeda M.D. on 08/14/2024 at 8:48
[2024-08-14] MEDS: ONDANSETRON 4 MG/2 ML INJ IV (08:39)
[2024-08-14] MEDS: SODIUM CHLORIDE 0.9% 1,000 ML 1000 ML IV (08:39)
[2024-08-14] MEDS: KETOROLAC 30 MG/ML VIAL 15 MG IV (08:39)
[2024-08-14] MEDS: DEXAMETHASONE 10 MG/ML VIAL IV (08:40)
[2024-08-14 08:50] LABS: Add Manual Diff / Slide Review NO; Basophils Absolute Auto 0 /uL (0-100); Basophils Percent Auto 0.6 % (0-2); Eosinophils Absolute Auto 100 /uL (0-450); Eosinophils Percent Auto 1.5 % (2-4); Hematocrit 42.8 % (36-46); Hemoglobin 14.6 g/dL (12.0-16.0); Lymphocytes Absolute Auto 800 /uL (1100-4500); Lymphocytes Percent Auto 18.5 % (25-40); Mean Corpuscular HGB Conc 34.2 % (30-36); Mean Corpuscular Volume 87.7 fL (80-100); Monocytes Absolute Auto 300 /uL (0-900); Monocytes Percent Auto 6.4 % (3-14); Neutrophils Absolute Auto 3300 /uL (1500-7000); Platelet Count 202 X10^3/uL (150-400); Red Blood Cell Count 4.88 X10^6/uL (4.0-5.2); Red Cell Distribution Width 13.4 % (11.6-14.8); White Blood Cell Count 4.5 X10^3/uL (4.5-11.0)
[2024-08-14 08:55] LABS: Alanine Aminotransferase 21 IU/L (<35); Albumin 4.4 g/dL (3.5-5.0); Albumin Globulin Ratio 1.3 (1.0-2.8); Alkaline Phosphatase 33 U/L (38-126); Aspartate Aminotransferase 27 IU/L (14-36); Bilirubin Total 0.6 mg/dL (0.2-1.3); Blood Urea Nitrogen 12 mg/dL (7-17); Calcium 9.2 mg/dL (8.4-10.2); Carbon Dioxide 25 mmol/L (22-32); Chloride 105 mmol/L (98-107); Estimated Glomerular Filt Rate > 60 mL/min (>60); Globulin 3.5 g/dL (1.7-4.1); Glucose 112 mg/dL (70-99); HEMOLYSIS < 15 (0-50); Potassium 3.9 mmol/L (3.4-5.1); Sodium 138 mmol/L (137-145); Total Protein 7.9 g/dL (6.3-8.2)
[2024-08-14 09:12] LABS: Procalcitonin 0.056 ng/mL (<0.5)
[2024-08-14 09:15] LABS: Erythrocyte Sedimentation Rate 11 MM/HR (0-20)
== END 2024-08-14 10:39 | disposition home or self-care (01) ==
PROVIDERS: Emergency Provider Emergency Medicine; PCP Family Medicine
DX: J32.9 Chronic sinusitis, unspecified (principal)
CPT/HCPCS: 70486; 80053; 84145; 85025; 85651; 86140; 96361; 96374; 96375; 99283; 99284; J1100; J1885; J2405